=== PATIENT | female | born 1990 | race Two or more races ===

== ENCOUNTER 2018-05-28 10:53 | Emergency (ER) | payer OTHER ==
[~2018-05-28] VITALS: Ht 162.6 cm; Wt 72.6 kg
== END 2018-05-28 17:27 | disposition home or self-care (01) ==
LOC: ER 10:53
DX: O20.0 Threatened abortion (principal); Z34.01 Encounter for supervision of normal first pregnancy, first trimester

== ENCOUNTER 2018-12-29 06:47 | Inpatient (IN) | payer OTHER ==
[~2018-12-29] VITALS: Ht 162.6 cm; Wt 84.4 kg
[2018-12-31] MEDS ORDERED: PRENATAL 19 TA1 EACH PO (09:33)
== END 2018-12-31 13:28 | disposition home or self-care (01) | DRG 807 ==
LOC: LDR 06:47 → OB/GYN 06:47
PROVIDERS: ADMIT Obstetrics & Gynecology
PROC: 10E0XZZ Delivery of Products of Conception, External Approach (ICD-10-PCS; principal; 2018-12-29)
PROC: 4A0HXFZ Measurement of Products of Conception, Cardiac Rhythm, External Approach (ICD-10-PCS; 2018-12-29)
DX: O80 Encounter for full-term uncomplicated delivery (principal); Z37.0 Single live birth; Z3A.39 39 weeks gestation of pregnancy